=== PATIENT | male | born 1975 | race Caucasian/White ===

== ENCOUNTER → 2016-04-23 | Outpatient (CLI) | payer BC ==
--- NOTE | 2016-04-23 13:32 | Diagnostic Imaging Report ---
Indication: Dyspnea Comparison: None 2 views of the chest obtained. Findings: Cardiomediastinal silhouette and pulmonary vascularity are within normal limits for age. The diaphragmatic contour is smooth and costophrenic angles are sharp. No pleural effusions are identified. The bones are unremarkable. Impression: No acute disease
--- NOTE | 2016-04-23 14:05 | Diagnostic Imaging Report ---
Indication: Chest pain Technique: A ventilation/perfusion scan was performed. Ventilation was performed utilizing 43.5 mCi of technetium 99m DTPA Perfusion was performed with 6.2 mCi of technetium 99m-MAA injected intravenously. Lungs were then projected in 8 different projections. Findings: Ventilation is homogeneous. No defects are identified. Perfusion is homogeneous. No defects are identified. Impression: Normal VQ scan.
== END | disposition home or self-care (01) ==
LOC: NUM 08:45
DX: R07.9 Chest pain, unspecified (principal); R06.00 Dyspnea, unspecified
CPT/HCPCS: 71020; 78579; 78580; A4641; A9503

== ENCOUNTER → 2016-04-26 | Outpatient (CLI) | payer BC ==
--- NOTE | 2016-04-28 09:32 | Diagnostic Imaging Report ---
Indication: Right-sided rib pain Technique: IV administration 26.6 mCi 99 M technetium MDP. Whole body and spot images were obtained. Comparison: None Findings:No abnormal increased or decreased uptake is demonstrated. Normal renal and bladder activity Impression:Negative No abnormality to explain stated clinical history of right-sided rib pain
== END | disposition home or self-care (01) ==
LOC: NUM 08:20
DX: M86.9 Osteomyelitis, unspecified (principal); R07.81 Pleurodynia
CPT/HCPCS: 78306; A4641

== ENCOUNTER → 2016-07-26 | Outpatient (CLI) | payer BC ==
--- NOTE | 2016-07-26 16:35 | Diagnostic Imaging Report ---
Indication: COUGH Technique: 2 views of the chest Comparison: 04/23/2016. Findings: Lungs and pleural spaces are clear. Heart size is normal. Bones are unremarkable. No significant change Impression: No acute process
== END | disposition home or self-care (01) ==
LOC: RAD 15:47
DX: R05 Cough (principal); R06.02 Shortness of breath
CPT/HCPCS: 71020